=== PATIENT | female | born 1985 | race African-American/Black ===

== ENCOUNTER 2017-05-14 16:03 | Emergency (ER) | payer OTHER ==
[~2017-05-14] VITALS: Ht 170.2 cm; Wt 104.3 kg
--- NOTE | ~2017-05-14 | CR63 ---
[facility] A Service of [facility] & [facility] RADIOLOGY TEXT RESULTS PATIENT: TEOFILO LUND LOCATION: CFTX : 87 UNIT #: [id number] AGE: [address]: Vashti Smith SEX: F ORDER DR: [id number] [facility] [address] [place], [place] [address] [id number] MR#: [id number] Acc #: [id number] NAME: TEOFILO LUND. : 1985 SEX: F STUDY DATE/TIME: 05/14/2017 16:44 UNIT: [facility] ROOM: STUDY DESCRIPTION: CR Chest 2 View Attending Physician: Vashti Smith P.A.-C. Ordering Physician: Vashti Smith P.A.-C. Primary Care Physician: Kimberly Holt M.D. MEDICAL IMAGING REPORT This report is preliminary unless electronic signature is present EXAM Two-view chest, 05/14/2017 HISTORY 31-year-old female with shortness of air and cough for 1-1/2 months. COMPARISON None FINDINGS Two views of the chest demonstrate clear lungs. No pleural effusion or pneumothorax. Heart size and mediastinum are normal. Pulmonary vasculature normal. IMPRESSION No acute cardiopulmonary findings. Dictated by... Glen Nicholson M.D. THIS IS AN ELECTRONICALLY VERIFIED REPORT Glen Nicholson M.D. at 05/15/2017 2:15 PM JEAN/josh TD: 05/15/2017 11:32 JOB #: [id number] MEDICAL IMAGING REPORT Page 1 of 1 COPY
[~2017-05-14 16:03] MED LIST: BACTRIM DS TABL1 TAB PO; PHENERGAN PO
== END 2017-05-14 17:10 | disposition home or self-care (01) ==
LOC: CED 16:03 → CFTX 16:03
DX: J02.9 Acute pharyngitis, unspecified (principal); R03.0 Elevated blood-pressure reading, without diagnosis of hypertension; K21.9 Gastro-esophageal reflux disease without esophagitis; E87.6 Hypokalemia; F17.210 Nicotine dependence, cigarettes, uncomplicated
CPT/HCPCS: 71020; 84703; 87651; 99283

== ENCOUNTER 2017-05-17 16:14 | Emergency (ER) | payer OTHER | END 2017-05-17 18:16 | disposition home or self-care (01) | LOC: CED 16:14 | DX: J02.9 Acute pharyngitis, unspecified (principal); F17.200 Nicotine dependence, unspecified, uncomplicated | CPT/HCPCS: 96372; 99282; J2930 ==

== ENCOUNTER 2017-05-20 11:22 | Emergency (ER) | payer OTHER ==
--- NOTE | ~2017-05-20 | CT114 ---
[facility]. [facility] A Service of [facility] & [facility] RADIOLOGY TEXT RESULTS PATIENT: TEOFILO LUND LOCATION: SED : 87 UNIT #: [id number] AGE: [address]: Phyllis Castellon MD SEX: F ORDER DR: [id number] [address] [address] [id number] MR#: [id number] Acc #: [id number] NAME: TEOFILO LUND. : 1985 SEX: F STUDY DATE/TIME: 05/20/2017 13:20 UNIT: SED ROOM: STUDY DESCRIPTION: CT Soft Tissue Neck W Cont Attending Physician: Phyllis Castellon M.D. Ordering Physician: Phyllis Castellon M.D. Primary Care Physician: Kimberly Holt M.D. MEDICAL IMAGING REPORT This report is preliminary unless electronic signature is present. EXAM CT neck with contrast HISTORY Diagnosed with pharyngitis 4 days ago. Patient on prednisone and Zithromax. Complains of trouble swallowing today, elevated white count. Swelling on the right side. TECHNIQUE This CT exam was performed with one or more of the following radiation dose reduction techniques: automatic exposure control, adjustment of mA and/or kV according to patient size, and iterative reconstruction. FINDINGS Axial images performed through the neck from the skull base to the monica following IV contrast. Multiplanar reconstructed images were reviewed. Extensive soft tissue swelling involving the right parapharyngeal soft tissues with deformity of the oropharynx. Two areas of decreased attenuation, one measuring 1.9 cm x 2.3 cm and the other measuring 2 cm x 3 cm may represent areas of phlegmon or developing abscess. A discrete drainable fluid collection is not identified. A moderate amount of anterior and posterior cervical lymphadenopathy identified but no necrotic nodes are identified. Submandibular glands unremarkable. A few small submandibular nodes. Parotid and thyroid glands unremarkable. The remainder of the anatomic spaces within the head and neck appear normal. Airway is patent. Osseous structures and vascular structures unremarkable. The skull base and lung apices appear normal. IMPRESSION Diffuse soft tissue swelling involving the right parapharyngeal soft tissues with areas of low attenuation and subtle peripheral enhancement which may represent developing parapharyngeal abscess though a discrete STS. [facility] A Service of [facility] & [facility] RADIOLOGY TEXT RESULTS PATIENT: TEOFILO LUND LOCATION: WING : 87 UNIT #: [id number] AGE: [address]: Phyllis Castellon MD SEX: F ORDER DR: drainable fluid collection is not identified. This does deform the oropharynx but does not significantly compromise the airway. A moderate amount of reactive bilateral cervical lymphadenopathy. Dictated by... Chris Alba M.D. THIS IS AN ELECTRONICALLY VERIFIED REPORT Chris Alba M.D. at 05/21/2017 7:13 AM MATHEW/primo TD: 05/20/2017 22:40 JOB #: [id number] MEDICAL IMAGING REPORT Page 1 of 1
[2017-05-20] MEDS ORDERED: DELTASONE20 MG (11:28)
[2017-05-20] MEDS ORDERED: HYDROCODON-ACE118 ML PO (11:29)
[2017-05-20] MEDS ORDERED: ZANTAC150 M1 PO (11:29)
[2017-05-20] MEDS ORDERED: ALBUTEROL17 GM INH (11:30)
[2017-05-20] MEDS ORDERED: ALLER-TEC D 5-1 EACH PO (11:30)
[2017-05-20 12:12] LABS: BASOPHIL# 0.1 X10e3 (0-0.3); BASOPHIL% 0.3 % (0-2.5); HEMATOCRIT 36.7 % (35.0-45.0); HEMOGLOBIN 11.9 gm/dL (12.0-16.0); LYMPHOCYTE# 0.5 X10e3 (1.0-3.5); LYMPHOCYTE% 2.4 % (17.0-45.0); MEAN CORPUSCULAR HEMOGLOBIN 27.5 PG (28-34); MEAN CORPUSCULAR HGB CONC 32.3 g/dL (30-36); MEAN PLATELET VOLUME 8.6 FL (6.5-11.5); MONOCYTE% 4.6 % (3.0-12.0); NEUTROPHIL# 19.7 X10e3 (1.5-7.1); NEUTROPHIL% 92.7 % (40-75); PLATELET COUNT 268 X10e3 (140-420); RED BLOOD COUNT 4.32 X10e (3.90-5.30); RED CELL DISTRIBUTION WIDTH 14.7 % (11.0-15.5); WHITE BLOOD COUNT 21.2 X10e3 (4.0-10.5)
[2017-05-20 12:21] LABS: DIFF IND YES
[2017-05-20 12:30] LABS: CREATININE SERUM 0.9 mg/dL (0.6-1.4); GLOM FILT RATE Estimated 100.2 mL/min (>60); POTASSIUM 3.6 mmol/L (3.5-5.1)
[2017-05-20 12:37] LABS: PLATELET ESTIMATE NORMAL (NORMAL); RBC NORMAL YES
== END 2017-05-20 14:02 | disposition home or self-care (01) ==
LOC: SED 11:22
PROVIDERS: Student in an Organized Health Care Education/Training Program
DX: J02.9 Acute pharyngitis, unspecified (principal); J36 Peritonsillar abscess; Z91.040 Latex allergy status; Z88.8 Allergy status to other drugs, medicaments and biological substances; Z79.899 Other long term (current) drug therapy
CPT/HCPCS: 36415; 70491; 80048; 84703; 85025; 86308; 96365; 96375; 99284; J0295; J1100; J2270; J2405; Q9967